=== PATIENT | female | born 1990 | race American Indian/Alaskan Native ===

== ENCOUNTER 2022-02-13 06:10 | Emergency (ER) | payer MEDICAID, OTHER ==
[2022-02-13] MEDS ORDERED: LORazepam 0.5 MG Tab PO ONE ×2 (06:11→08:05)
[2022-02-13 07:33] LABS: MDMA (ECSTASY), URINE NEGATIVE (NEGATIVE); METHAMPHETAMINES,URINE POSITIVE (NEGATIVE)
[2022-02-13 07:34] LABS: AMPHETAMINES,URINE POSITIVE (NEGATIVE); BARBITURATES,URINE NEGATIVE (NEGATIVE); BENZODIAZEPINE,URINE NEGATIVE (NEGATIVE); METHADONE,URINE NEGATIVE (NEGATIVE); OPIATES,URINE NEGATIVE (NEGATIVE); OXYCODONE,URINE NEGATIVE (NEGATIVE); PHENCYCLIDINE,URINE NEGATIVE (NEGATIVE); TCA,URINE NEGATIVE (NEGATIVE)
[2022-02-13 07:43] LABS: ANION GAP 16.8 mEq/L (7-13); CHLORIDE,CL 98 mmol/L (98-107); SODIUM,NA 138 mmol/L (136-145)
[2022-02-13] MEDS ORDERED: LORazepam 2 MG/ML SDV IVPUSH ONE (07:55)
[2022-02-13] MEDS ORDERED: Magnesium Sulfate/Water 20 GM/500 ML BAG IV ONE (07:57)
[2022-02-13] MEDS ORDERED: LORazepam 0.5 MG Tab ONE (08:26)
== END 2022-02-13 08:28 | disposition home or self-care (01) ==
LOC: DL.ED 06:10
DX: F41.9 Anxiety disorder, unspecified (principal); F15.10 Other stimulant abuse, uncomplicated; E83.42 Hypomagnesemia
CPT/HCPCS: 36415; 80053; 80305; 80307; 81001; 81025; 83735; 85025; 99283; A9270

== ENCOUNTER 2022-03-22 21:35 | Emergency (ER) | payer MEDICAID, OTHER ==
[2022-03-22] MEDS ORDERED: MVI, Adult with Vitamin K 10 ML, Thiamine 100 MG, Folic Acid 1 MG in Lactated Ringers 1... IV ONE ×4 (22:00)
[2022-03-22 22:32] LABS: ANION GAP 13.7 mEq/L (7-13)
[2022-03-22 22:39] LABS: AMPHETAMINES,URINE NEGATIVE (NEGATIVE); BARBITURATES,URINE NEGATIVE (NEGATIVE); BENZODIAZEPINE,URINE NEGATIVE (NEGATIVE); MDMA (ECSTASY), URINE NEGATIVE (NEGATIVE); METHADONE,URINE NEGATIVE (NEGATIVE); METHAMPHETAMINES,URINE NEGATIVE (NEGATIVE); OPIATES,URINE NEGATIVE (NEGATIVE); OXYCODONE,URINE POSITIVE (NEGATIVE); PHENCYCLIDINE,URINE NEGATIVE (NEGATIVE); TCA,URINE NEGATIVE (NEGATIVE)
== END 2022-03-22 23:36 | disposition home or self-care (01) ==
LOC: DL.ED 21:35
DX: F10.120 Alcohol abuse with intoxication, uncomplicated (principal); D64.9 Anemia, unspecified; E87.1 Hypo-osmolality and hyponatremia; F17.210 Nicotine dependence, cigarettes, uncomplicated; Y90.8 Blood alcohol level of 240 mg/100 ml or more
CPT/HCPCS: 36415; 80053; 80305; 80307; 81001; 81025; 83605; 83735; 85025; 96365; 99283; 99284; J3411; J7120; J3490

== ENCOUNTER 2022-07-27 10:49 | Emergency (ER) | payer MEDICAID | END 2022-07-27 11:16 | disposition left against medical advice (07) | LOC: DL.ED 10:49 | DX: Z53.21 Procedure and treatment not carried out due to patient leaving prior to being seen by health care provider (principal) ==

== ENCOUNTER 2023-12-27 20:59 | Emergency (ER) | payer MEDICAID, OTHER ==
[2023-12-27 21:33] LABS: BASOPHILS PERCENT AUTO 0.5 % (0.0-1.0); EOSINOPHILS PERCENT AUTO 0.8 % (1.0-3.0); HEMATOCRIT 38.8 % (37.0-47.0); HEMOGLOBIN 12.2 g/dL (12.0-16.0); LYMPHOCYTES PERCENT AUTO 42.2 % (20.5-50.1); MEAN CORPUSCULAR HEMOGLOBIN 28.7 pg (27.0-34.0); MEAN CORPUSCULAR HGB CONC 31.4 g/dL (33.0-35.0); MEAN CORPUSCULAR VOLUME 91.3 fL (80-100); MONOCYTES PERCENT AUTO 9.8 % (2-8); NEUTROPHILS PERCENT AUTO 46.7 % (42.2-75.2); PLATELET COUNT,PLT 347 10^3/uL (150-450); RED BLOOD CELL COUNT 4.25 10^6/uL (4.2-5.4); WHITE BLOOD CELL COUNT,WBC 6.1 10^3/uL (5.0-10.0)
[2023-12-27 21:55] LABS: A/G RATIO 0.83; ALANINE AMINOTRANSFERASE,ALT 64 U/L (14-59); ALBUMIN 3.3 g/dL (3.4-5.0); ALKALINE PHOSPHATASE 47 U/L (46-116); ANION GAP 14.2 mEq/L (7-13); ASPARTATE AMNIOTRANSFERASE,AST 32 U/L (15-37); BILIRUBIN TOTAL 0.2 mg/dL (0.2-1.0); BLOOD UREA NITROGEN,BUN 12 mg/dL (7-18); BUN/CREATININE RATIO 18.2 (No establ ref range); CALCIUM 7.8 mg/dL (8.5-10.1); CARBON DIOXIDE,CO2 26 mmol/L (21-32); CHLORIDE,CL 115 mmol/L (98-107); CREATININE 0.66 mg/dL (0.55-1.02); ESTIMATED GFR 119 mL/min (>=60); GLUCOSE RANDOM 63 mg/dL (70-99); POTASSIUM,K 3.2 mmol/L (3.5-5.1); PROTEIN TOTAL,TP 7.3 g/dL (6.4-8.2); SODIUM,NA 152 mmol/L (136-145)
[2023-12-27 22:09] LABS: HCG QUALITATIVE,SERUM NEGATIVE (NEGATIVE)
[2023-12-27] MEDS: Sodium Chloride 0.9% 1,000 ML IV ONE (22:31)
[2023-12-27 22:39] LABS: APPEARANCE,URINE CLEAR (CLEAR); BILIRUBIN,URINE NEGATIVE (NEGATIVE); GLUCOSE,URINE NEGATIVE (NEGATIVE); KETONES,URINE NEGATIVE (NEGATIVE); LEUKOCYTE ESTERASE,URINE SMALL (NEGATIVE); NITRITE,URINE NEGATIVE (NEGATIVE); OCCULT BLOOD,URINE NEGATIVE (NEGATIVE); PH,URINE 6.5 (5.0-9.0); PROTEIN,URINE NEGATIVE (NEGATIVE); UROBILINOGEN,URINE 0.2 mg/dL (0.2-1.0)
[2023-12-27 22:40] LABS: COLOR,URINE LIGHT YELLOW (YELLOW)
[2023-12-27 22:47] LABS: AMORPHOUS SEDIMENT,URINE RARE /HPF (NOT SEEN); AMPHETAMINES,URINE NEGATIVE (NEGATIVE); BACTERIA,URINE RARE /HPF (0-FEW/HPF); BARBITURATES,URINE NEGATIVE (NEGATIVE); BENZODIAZEPINE,URINE NEGATIVE (NEGATIVE); EPITHELIAL CELLS,URINE RARE /HPF (NOT SEEN); MDMA (ECSTASY), URINE NEGATIVE (NEGATIVE); METHADONE,URINE NEGATIVE (NEGATIVE); METHAMPHETAMINES,URINE NEGATIVE (NEGATIVE); MUCUS,URINE RARE /LPF (NOT SEEN); OPIATES,URINE NEGATIVE (NEGATIVE); OXYCODONE,URINE NEGATIVE (NEGATIVE); PHENCYCLIDINE,URINE NEGATIVE (NEGATIVE); RBC,URINE 0-5 /HPF (0-5); TCA,URINE NEGATIVE (NEGATIVE)
== END 2023-12-27 23:06 ==
LOC: DL.ED 20:59
DX: F10.129 Alcohol abuse with intoxication, unspecified (principal); F10.10 Alcohol abuse, uncomplicated; Y90.9 Presence of alcohol in blood, level not specified; R41.82 Altered mental status, unspecified; R55 Syncope and collapse; Z79.899 Other long term (current) drug therapy; Y90.8 Blood alcohol level of 240 mg/100 ml or more
CPT/HCPCS: 36415; 70450; 80053; 80305; 80307; 81001; 84484; 84703; 85025; 87086; 93005; 99285; J7030

== ENCOUNTER 2024-03-16 05:26 | Emergency (ER) | payer MEDICAID ==
[2024-03-16] MEDS: Ketorolac 30 MG/ML SDV IM ONE (06:27)
[2024-03-16] MEDS: Iopamidol 612 MG/ML 100 ML Bottle IVPUSH ONE (08:16)
[2024-03-16] MEDS: Ondansetron 4 MG/2 ML SDV IVPUSH ONE (08:24)
[2024-03-16] MEDS: Morphine 4 MG/ML Syringe IVPUSH ONE (08:24)
[2024-03-16] MEDS: Take Home: Acetaminophen/oxyCODONE 325-5 MG, 5 Tab Pack PO ONE (09:31)
== END 2024-03-16 09:37 | disposition home or self-care (01) ==
LOC: DL.ED 05:26
DX: S22.42XA Multiple fractures of ribs, left side, initial encounter for closed fracture (principal); S01.511A Laceration without foreign body of lip, initial encounter; Z86.16 Personal history of COVID-19; Z79.899 Other long term (current) drug therapy; Y04.8XXA Assault by other bodily force, initial encounter
CPT/HCPCS: 71101; 71250; 74177; 81025; 96372; 96374; 96375; 99284; A9270; J1885; J2270; J2405; Q9967